=== PATIENT | male | born 2000 | race Caucasian/White ===

== ENCOUNTER 2018-08-31 16:18 | Emergency (ER) | payer MEDICAID ==
[~2018-08-31] VITALS: Wt 78.1 kg
[2018-08-31 16:21] VITALS: BP 130/70; PULSE 60; RESP 18
[2018-08-31] MEDS ORDERED: IBUP-1542 PO (18:36)
--- NOTE | 2018-08-31 18:38 | ERD ---
ER Documentation Chief Complaint Chief Complaint RIGHT WRIST PAIN HPI 18-year-old male presents with right wrist pain after falling on on outstretched hand 2 days ago. He has restricted range of motion due to pain but no weakness or deficits. He points to the wrist joint and styloid area as area of pain. ROS All systems reviewed and are negative except as per history of present illness. Medications Home Meds Active Scripts Ibuprofen* (Motrin*) 600 Mg Tab, 600 MG PO Q6, #20 TAB Prov:CJ CORTES MD 08/31/18 PMhx/Soc Medical and Surgical Hx: pt denies Medical Hx, pt denies Surgical Hx Hx Alcohol Use: No Hx Substance Use: No Hx Tobacco Use: No Smoking Status: Never smoker Physical Exam Vitals Vital Signs Date Temp Pulse Resp B/P (MAP) Pulse Ox O2 O2 Flow FiO2 Time Delivery Rate 08/31/18 98.6 60 18 130/70 99 16:21 (90) Physical Exam Const: No acute distress Head: Atraumatic Eyes: Normal Conjunctiva ENT: Normal External Ears, Nose and Mouth. Neck: Full range of motion. No meningismus. Resp: Clear to auscultation bilaterally Cardio: Regular rate and rhythm, no murmurs Abd: Soft, non tender, non distended. Normal bowel sounds Skin: No petechiae or rashes Back: No midline or flank tenderness Ext: No cyanosis, or edema. Tenderness on right wrist joint without deformities. No scaphoid tenderness. No restricted range of motion or weakness. Neur: Awake and alert Psych: Normal Mood and Affect Procedures/MDM X-ray right wrist 3V Interpreted by me: Scaphoid: Normal Bones: No fracture Joints: No dislocation Foreign body: None. Impression-normal right wrist x-ray She presents with signs and symptoms of right wrist sprain. Is placed in a right wrist Velcro brace was neurovascular intact at the brace. He will be discharged home with ibuprofen, primary care follow-up and return precautions. He is advised to see orthopedist for pain next week. No evidence of deficits, fracture, dislocation, septic arthritis, additional emergent causes of presenting complaints. Departure Diagnosis: Primary Impression: Wrist injury Encounter type: initial encounter Laterality: right Qualified Codes: S69.91XA - Unspecified injury of right wrist, hand and finger(s), initial encounter Condition: Stable Patient Instructions: Wrist Sprain Additional Instructions: X-ray read as normal. Likely sprain. Recheck with primary doctor for pain next week. Return sooner for new or worsening symptoms. CJ CORTES MD Aug 31, 2018 18:38
== END 2018-08-31 18:45 | disposition home or self-care (01) ==
LOC: FTE 16:18
DX: S69.91XA Unspecified injury of right wrist, hand and finger(s), initial encounter (principal); W18.39XA Other fall on same level, initial encounter; Y92.9 Unspecified place or not applicable